=== PATIENT | female | born 1940 | race Two or more races ===

== ENCOUNTER 2022-01-01 11:48 | Inpatient (IN) | payer BC, MEDICAID, MEDICARE ==
[~2022-01-01] VITALS: Ht 152.4 cm; Wt 90.9 kg
[~2022-01-01 11:48] MED LIST: IBUP-1985 PO
[2022-01-01 12:42] LABS: BASOPHILS % (AUTO) 0.4 % (0-1); EOSINOPHILS # (AUTO) 0.1 X10'3 (0-0.9); HEMOGLOBIN 10.7 g/dl (12.0-16.0); LYMPHOCYTES # (AUTO) 1.1 X10'3 (1.1-4.8); LYMPHOCYTES % (AUTO) 14.1 % (21-51); MEAN CORPUSCULAR HEMOGLOBIN 25.9 PG (27.0-31.0); MEAN CORPUSCULAR HGB CONC 32.2 g/dL (33.0-36.5); MEAN CORPUSCULAR VOLUME 80.4 FL (78-98); MEAN PLATELET VOLUME 10.3 FL (7.4-10.4); MONOCYTES # (AUTO) 0.6 X10'3 (0-0.9); MONOCYTES % (AUTO) 7.8 % (2-12); NEUTROPHILS # (AUTO) 5.9 X10'3 (1.8-7.7); NEUTROPHILS % (AUTO) 76.7 % (42-75); PLATELET COUNT 118 X10'3 (140-440); RED BLOOD COUNT 4.11 X10'6 (4.20-5.60); RED CELL DISTRIBUTION WIDTH 17.9 % (11.5-14.5); WHITE BLOOD COUNT 7.7 X10'3 (4.5-11.0)
[2022-01-01 13:06] LABS: ALANINE AMINOTRANSFERASE 16 U/L (12-78); ALBUMIN 3.3 G/DL (3.4-5.0); ALBUMIN/GLOBULIN RATIO 0.7 (1.1-1.5); ALKALINE PHOSPHATASE 80 IU/L (46-116); ANION GAP 12 (8-16); ASPARTATE AMINO TRANSFERASE 25 U/L (10-37); BILIRUBIN,TOTAL 1.4 MG/DL (0.1-1.0); BLOOD UREA NITROGEN 17 MG/DL (7-18); BUN/CREATININE RATIO 23.6 (6.6-38.0); CALCIUM 8.4 MG/DL (8.5-10.1); CHLORIDE 110 MMOL/L (99-107); CREATININE 0.72 MG/DL (0.40-0.90); GLUCOSE 126 MG/DL (70-104); POTASSIUM 3.5 MMOL/L (3.5-5.1); SODIUM 147 MMOL/L (135-145); TOTAL CARBON DIOXIDE 25.5 MMOL/L (24-32); TOTAL PROTEIN 7.8 G/DL (6.4-8.2); eGFR 78 ML/MIN
--- NOTE | 2022-01-01 13:15 | NUR ---
Pt is awake and alert but confused to date and time. Daughter and son-inlaw at the bedside. Pt FIGUEROA, denies pain, talks to herself, and is forgetful.
--- NOTE | 2022-01-01 13:40 | NUR ---
Dr. Do canceled stroke alert.
[2022-01-01 13:43] LABS: APTT 28 SECONDS (22-32)
[2022-01-01] MEDS ORDERED: magnesium 2GM in 50ml NS 50 ML IV ONE (13:50)
[2022-01-01] MEDS ORDERED: ipratropium/albuterol 3ml nebule IH ONE (13:50)
[2022-01-01 14:18] LABS: CLARITY,URINE CLOUDY (Clear); COLOR,URINE YELLOW (Yellow); GLUCOSE, URINE NEGATIVE (Neg); KETONES,URINE 15 mg/dl (Neg); LEUKOCYTE ESTERASE ,URINE SMALL (Neg); NITRITES, URINE POSITIVE (Neg); OCCULT BLOOD,URINE TRACE-INTACT (Neg); PH,URINE 5.5 (4.8-8.0); PROTEIN,URINE TRACE mg/dl (Neg)
[2022-01-01 14:30] LABS: UA COLLECTION TYPE STRAIGHT CATH
[2022-01-01 14:32] LABS: BACTERIA,URINE 4+ /HPF (Neg); WBC,URINE 50-100 /HPF (0-4)
[2022-01-01 14:33] LABS: MUCUS STRANDS MODERATE /LPF (Neg); RBC,URINE 0-2 /HPF (0-2); SQUAMOUS EPITHELIAL CELL,UR MODERATE /LPF (FEW)
[2022-01-01] MEDS ORDERED: lactulose 20gm/30ml cup PO ONE (15:30)
[2022-01-01] MEDS ORDERED: rifaximin 550mg tablet PO ONE (15:30)
[2022-01-01] MEDS: CefTRIAXone 2gm/D5W 50ml BAG 50 ML IV ONE ×2 (16:11→17:04)
[2022-01-01] MEDS ORDERED: LEVO125T8 PO (17:46)
[2022-01-01] MEDS ORDERED: PERFLUTREN PROTEIN-A MICROSPHR (Optison) 0.22 MG/ML 3ML VIAL IV ONE (18:05)
[2022-01-01] MEDS ORDERED: potassium CL 10mEq/100ml bag 100 ML IV PRN (18:05)
[2022-01-01] MEDS ORDERED: magnesium 4gm in 100ml NS 100 ML IV PRN (18:05)
[2022-01-01] MEDS ORDERED: magnesium 2GM in 50ml NS 50 ML IV PRN (18:05)
[2022-01-01] MEDS ORDERED: acetaminophen 325mg tablet PO PRN ×2 (18:05)
[2022-01-01] MEDS ORDERED: POTASSIUM BICARB 20meq eff tab 20 MEQ TABLET.EFF PO PRN (18:05)
[2022-01-01] MEDS ORDERED: magnesium Cl slow-release 64mg tablet PO PRN (18:05)
[2022-01-01] MEDS ORDERED: mag hydrox/Alum hydrox/simeth 30ml oral suspension PO PRN (18:05)
[2022-01-01] MEDS ORDERED: HYDROcodone/acetaminophen 10/325mg tab PO PRN (18:05)
[2022-01-01] MEDS ORDERED: magnesium hydroxide 30ml (MOM) UD suspension PO PRN (18:05)
[2022-01-01] MEDS ORDERED: bisacodyl 10mg suppository rectal RC PRN (18:05)
[2022-01-01] MEDS ORDERED: morphine 2 MG/ML inj. syringe IV PRN ×2 (18:05)
[2022-01-01] MEDS ORDERED: HYDROcodone/acetaminophen 5mg/325mg tablet PO PRN (18:05)
[2022-01-01] MEDS ORDERED: diphenhydrAMINE 25mg capsule PO PRN (18:05)
[2022-01-01 19:07] LABS: HEMOGLOBIN A1C 6.3 % (4.5-6.2)
[2022-01-01] MEDS: K and/or MAG REPLACEMENT MC SCH (20:00)
[2022-01-01] MEDS: heparin, porcine 5000 units/ml vial SQ SCH (20:48)
[2022-01-01] MEDS: lactulose 20gm/30ml cup PO SCH (20:48)
[2022-01-01] MEDS: docusate sod 100mg capsule PO SCH (20:48)
[2022-01-02] MEDS: normal saline 1000ml 1,000 ML IV SCH ×3 (00:19→11:42)
[2022-01-02] MEDS: lactulose 20gm/30ml cup PO SCH ×6 (00:51→20:41)
[2022-01-02] MEDS: diatr meglu/diatrizoate 30ml oral sol.-(3 dose) bottle PO SCH ×3 (01:15→18:45)
[2022-01-02 06:21] LABS: BASOPHILS % (AUTO) 0.6 % (0-1); EOSINOPHILS # (AUTO) 0.2 X10'3 (0-0.9); EOSINOPHILS % (AUTO) 3.2 % (0-6); HEMATOCRIT 29.8 % (35.0-45.0); HEMOGLOBIN 9.6 g/dl (12.0-16.0); LYMPHOCYTES # (AUTO) 1.5 X10'3 (1.1-4.8); LYMPHOCYTES % (AUTO) 30.5 % (21-51); MEAN CORPUSCULAR HGB CONC 32.3 g/dL (33.0-36.5); MEAN CORPUSCULAR VOLUME 80.6 FL (78-98); MEAN PLATELET VOLUME 10.3 FL (7.4-10.4); MONOCYTES # (AUTO) 0.4 X10'3 (0-0.9); MONOCYTES % (AUTO) 8.7 % (2-12); NEUTROPHILS # (AUTO) 2.9 X10'3 (1.8-7.7); PLATELET COUNT 106 X10'3 (140-440); RED CELL DISTRIBUTION WIDTH 17.8 % (11.5-14.5); WHITE BLOOD COUNT 5.1 X10'3 (4.5-11.0)
[2022-01-02] MEDS: heparin, porcine 5000 units/ml vial SQ SCH (07:32)
[2022-01-02] MEDS: levoTHYROXINE 125mcg tablet PO SCH (07:32)
[2022-01-02] MEDS: CefTRIAXone/D5W-Rocephin 1gm 50 ML IV SCH (07:33)
[2022-01-02] MEDS: docusate sod 100mg capsule PO SCH ×2 (07:33→20:00)
[2022-01-02] MEDS: K and/or MAG REPLACEMENT MC SCH ×2 (07:33→20:00)
[2022-01-02] MEDS ORDERED: pantoprazole 40MG/NS 100ML BAG 100 ML IV SCH (08:30)
[2022-01-02] MEDS ORDERED: pantoprazole 40mg Tablet.DR PO SCH (08:45)
[2022-01-02] MEDS: rifaximin 550mg tablet PO SCH ×2 (09:21→20:41)
[2022-01-02] MEDS ORDERED: iohexol 350MG/ML 100ml bottle IV ONE (09:42)
[2022-01-02 10:05] LABS: ALANINE AMINOTRANSFERASE 14 U/L (12-78); ALBUMIN 2.9 G/DL (3.4-5.0); ALBUMIN/GLOBULIN RATIO 0.7 (1.1-1.5); ALKALINE PHOSPHATASE 72 IU/L (46-116); ANION GAP 14 (8-16); ASPARTATE AMINO TRANSFERASE 29 U/L (10-37); BILIRUBIN,TOTAL 0.9 MG/DL (0.1-1.0); BLOOD UREA NITROGEN 16 MG/DL (7-18); BUN/CREATININE RATIO 22.9 (6.6-38.0); CALCIUM 7.7 MG/DL (8.5-10.1); CHLORIDE 113 MMOL/L (99-107); CHOL/HDL RATIO 3.4 (0.00-4.99); CHOLESTEROL 134 MG/DL (0-200); GLUCOSE 129 MG/DL (70-104); HDL CHOLESTEROL 39 MG/DL (35-60); LDL CHOLESTEROL 85 MG/DL (50-100); MAGNESIUM 2.2 MG/DL (1.5-2.4); POTASSIUM 3.6 MMOL/L (3.5-5.1); SODIUM 150 MMOL/L (135-145); TOTAL CARBON DIOXIDE 23.2 MMOL/L (24-32); TRIGLYCERIDES 69 MG/DL (20-135); eGFR 80 ML/MIN
[2022-01-02 11:10] LABS: % IRON SATURATION 5 % (11-46); FERRITIN 11 NG/ML (8-252); IRON 23 UG/DL (49-151); TOTAL IRON BINDING CAPACITY 422 UG/DL (259-388)
[2022-01-02 11:12] LABS: HIV ANTIBODY 1&2 RAPID NON-REACTIVE (Neg)
[2022-01-02 13:55] VITALS: BP 136/53
--- NOTE | 2022-01-02 13:55 | NUR ---
received report from SANDRA Schneider in the ER. pt arrived to room 00853W in stable condition. pt oriented to room, hooked up to heart and vital monitor. pt currently has NS @75ml/hr and Protonix @ 20ml/hr. pt in SR/ SB Vital signs stable. pt alert and oriented, bu ttired. Addendum: 01/02/22 at 1617 by Alia Deng RN pt tired, but arrousable and able to answer questions. no deficits noted on neuro exam. Spoke to Adrianna bustillo Rn and no further stroke work up is necessary unless Dr. Ray gonzalez something. Addendum: 01/02/22 at 1623 by Alia Deng RN pts belongings dentures and clemens, and bra. no other belongings.
[2022-01-02] MEDS: pantoprazole 40MG/NS 100ML BAG 100 ML IV SCH ×2 (14:48→19:14)
--- NOTE | 2022-01-02 16:21 | NUR ---
paged Dr. Ray Rojo RN [phone] Short stay Eric Ward has Heparin SQ ordered and has had blood in stools, also on Rifaxamin. clarifying if you would like to continue these meds? thank you
--- NOTE | 2022-01-02 16:40 | NUR ---
pt transferred to [facility] room 3449P in stable condition. all belongings (one denture, clemens and bra) with pt. report given to SANDRA Gallego. pt oriented to room, call light in reach. Lashonda FLORES in to see pt.
[2022-01-02 18:00] VITALS: BP 147/70
--- NOTE | 2022-01-02 18:57 | NUR ---
Problems reprioritized. Patient report given, questions answered & plan of care reviewed with SANDRA Terry.
[2022-01-02] MEDS: dextrose 5%-water 1,000 ML IV SCH (20:43)
[2022-01-02 21:04] LABS: HEMATOCRIT 28.8 % (35.0-45.0); HEMOGLOBIN 9.1 g/dl (12.0-16.0); MEAN CORPUSCULAR HGB CONC 31.7 g/dL (33.0-36.5); MEAN CORPUSCULAR VOLUME 82.1 FL (78-98); MEAN PLATELET VOLUME 10.4 FL (7.4-10.4); PLATELET COUNT 102 X10'3 (140-440); RED BLOOD COUNT 3.51 X10'6 (4.20-5.60); RED CELL DISTRIBUTION WIDTH 18.4 % (11.5-14.5); WHITE BLOOD COUNT 4.1 X10'3 (4.5-11.0)
[2022-01-02 22:00] VITALS: BP 115/68
[2022-01-03] MEDS: dextrose 5%-water 1,000 ML IV SCH (00:10)
[2022-01-03] MEDS: lactulose 20gm/30ml cup PO SCH ×6 (00:19→19:54)
[2022-01-03] MEDS: pantoprazole 40MG/NS 100ML BAG 100 ML IV SCH ×6 (00:19→22:26)
[2022-01-03 02:00] VITALS: BP 127/64
--- NOTE | 2022-01-03 02:30 | NUR ---
omi labs, but blood hemolysed. tried to draw for hemogram, unable to get blood draw. 2 nurses both tried 3 times. Lab notified. Manager Environmental will come up to draw ADIEL
[2022-01-03 03:34] LABS: ALANINE AMINOTRANSFERASE 15 U/L (12-78); ALBUMIN/GLOBULIN RATIO 0.8 (1.1-1.5); ALKALINE PHOSPHATASE 72 IU/L (46-116); ANION GAP 13 (8-16); ASPARTATE AMINO TRANSFERASE 32 U/L (10-37); BILIRUBIN,TOTAL 0.9 MG/DL (0.1-1.0); BLOOD UREA NITROGEN 12 MG/DL (7-18); BUN/CREATININE RATIO 16.4 (6.6-38.0); CALCIUM 7.8 MG/DL (8.5-10.1); CHLORIDE 113 MMOL/L (99-107); CREATININE 0.73 MG/DL (0.40-0.90); GLUCOSE 165 MG/DL (70-104); MAGNESIUM 2.1 MG/DL (1.5-2.4); PHOSPHORUS 2.8 MG/DL (2.3-4.5); POTASSIUM 3.5 MMOL/L (3.5-5.1); SODIUM 148 MMOL/L (135-145); TOTAL CARBON DIOXIDE 22.1 MMOL/L (24-32); TOTAL PROTEIN 6.9 G/DL (6.4-8.2); eGFR 76 ML/MIN
--- NOTE | 2022-01-03 04:04 | NUR ---
Student documentation: I have reviewed and agree with all interventions, assessments performed and documented by SANDRA Crowe.
[2022-01-03 04:06] LABS: BASOPHILS % (AUTO) 0.5 % (0-1); EOSINOPHILS # (AUTO) 0.2 X10'3 (0-0.9); EOSINOPHILS % (AUTO) 4.1 % (0-6); HEMATOCRIT 28.9 % (35.0-45.0); HEMOGLOBIN 9.2 g/dl (12.0-16.0); LYMPHOCYTES # (AUTO) 1.8 X10'3 (1.1-4.8); LYMPHOCYTES % (AUTO) 32.3 % (21-51); MEAN CORPUSCULAR HEMOGLOBIN 25.9 PG (27.0-31.0); MEAN CORPUSCULAR HGB CONC 31.9 g/dL (33.0-36.5); MEAN CORPUSCULAR VOLUME 81.2 FL (78-98); MEAN PLATELET VOLUME 10.7 FL (7.4-10.4); MONOCYTES # (AUTO) 0.4 X10'3 (0-0.9); MONOCYTES % (AUTO) 7.7 % (2-12); NEUTROPHILS % (AUTO) 55.4 % (42-75); RED BLOOD COUNT 3.56 X10'6 (4.20-5.60); RED CELL DISTRIBUTION WIDTH 17.9 % (11.5-14.5); WHITE BLOOD COUNT 5.4 X10'3 (4.5-11.0)
[2022-01-03 05:20] LABS: PLATELET COUNT 106 X10'3 (140-440)
[2022-01-03 06:00] VITALS: BP 123/52
--- NOTE | 2022-01-03 06:38 | NUR ---
Problems reprioritized. Patient report given, questions answered & plan of care reviewed with SANDRA Perea.
[2022-01-03] MEDS: levoTHYROXINE 125mcg tablet PO SCH (07:51)
[2022-01-03] MEDS: rifaximin 550mg tablet PO SCH ×2 (07:51→19:54)
[2022-01-03] MEDS: CefTRIAXone/D5W-Rocephin 1gm 50 ML IV SCH (07:51)
[2022-01-03] MEDS: K and/or MAG REPLACEMENT MC SCH ×2 (08:00→19:49)
[2022-01-03] MEDS: docusate sod 100mg capsule PO SCH ×2 (08:00→20:00)
--- NOTE | 2022-01-03 09:44 | NUR ---
DM consult: Per EMR pt with T2DM, well controlled with A1c 6.36%. DM education not warranted at this time. Recommend advancing to regular diet as medically indicated given current A1c, lipid panel WNL, and geriatric age. Will continue to follow. Addendum: 01/03/22 at [address] Amended: Links added.
[2022-01-03 09:47] LABS: HEMOGLOBIN 8.8 g/dl (12.0-16.0); MEAN CORPUSCULAR HEMOGLOBIN 26.3 PG (27.0-31.0); MEAN CORPUSCULAR HGB CONC 31.5 g/dL (33.0-36.5); MEAN CORPUSCULAR VOLUME 83.4 FL (78-98); MEAN PLATELET VOLUME 10.4 FL (7.4-10.4); PLATELET COUNT 98 X10'3 (140-440); RED BLOOD COUNT 3.36 X10'6 (4.20-5.60); RED CELL DISTRIBUTION WIDTH 18.4 % (11.5-14.5); WHITE BLOOD COUNT 4.8 X10'3 (4.5-11.0)
[2022-01-03] MEDS: sodium ferric gluc complex inj 125 MG in normal saline 100ml IV soln 100 ML IV SCH (11:25)
[2022-01-03 13:00] VITALS: BP 119/52
[2022-01-03 15:38] LABS: HEMATOCRIT 27.5 % (35.0-45.0); HEMOGLOBIN 8.9 g/dl (12.0-16.0); MEAN CORPUSCULAR HEMOGLOBIN 26.6 PG (27.0-31.0); MEAN CORPUSCULAR HGB CONC 32.4 g/dL (33.0-36.5); MEAN CORPUSCULAR VOLUME 82.2 FL (78-98); MEAN PLATELET VOLUME 10.4 FL (7.4-10.4); PLATELET COUNT 105 X10'3 (140-440); RED BLOOD COUNT 3.35 X10'6 (4.20-5.60); RED CELL DISTRIBUTION WIDTH 18.3 % (11.5-14.5); WHITE BLOOD COUNT 5.8 X10'3 (4.5-11.0)
[2022-01-03 18:00] VITALS: BP 110/51
[2022-01-03 22:00] VITALS: BP_SYST 117; BP_SYST 99; BP_DIAS 45; BP_DIAS 60
[2022-01-04 00:05] LABS: OCCULT BLOOD STOOL POSITIVE (Neg)
[2022-01-04] MEDS: lactulose 20gm/30ml cup PO SCH ×3 (00:11→08:20)
--- NOTE | 2022-01-04 00:50 | NUR ---
Student documentation: I have reviewed and agree with all interventions, assessments performed and documented by IRASEMA Crowe.
[2022-01-04 02:00] VITALS: BP 114/88
[2022-01-04] MEDS: pantoprazole 40MG/NS 100ML BAG 100 ML IV SCH ×2 (03:37→08:20)
[2022-01-04 06:00] VITALS: BP 92/48
--- NOTE | 2022-01-04 06:17 | NUR ---
Problems reprioritized. Patient report given, questions answered & plan of care reviewed with SANDRA Espinal.
[2022-01-04 07:25] LABS: BASOPHILS % (AUTO) 0.6 % (0-1); EOSINOPHILS # (AUTO) 0.2 X10'3 (0-0.9); EOSINOPHILS % (AUTO) 4.1 % (0-6); HEMATOCRIT 26.2 % (35.0-45.0); HEMOGLOBIN 8.3 g/dl (12.0-16.0); LYMPHOCYTES # (AUTO) 1.2 X10'3 (1.1-4.8); LYMPHOCYTES % (AUTO) 26.1 % (21-51); MEAN CORPUSCULAR HEMOGLOBIN 25.9 PG (27.0-31.0); MEAN CORPUSCULAR HGB CONC 31.7 g/dL (33.0-36.5); MEAN CORPUSCULAR VOLUME 81.5 FL (78-98); MEAN PLATELET VOLUME 10.8 FL (7.4-10.4); MONOCYTES # (AUTO) 0.4 X10'3 (0-0.9); MONOCYTES % (AUTO) 8.4 % (2-12); NEUTROPHILS # (AUTO) 2.8 X10'3 (1.8-7.7); NEUTROPHILS % (AUTO) 60.8 % (42-75); PLATELET COUNT 106 X10'3 (140-440); RED BLOOD COUNT 3.22 X10'6 (4.20-5.60); RED CELL DISTRIBUTION WIDTH 17.8 % (11.5-14.5); WHITE BLOOD COUNT 4.7 X10'3 (4.5-11.0)
[2022-01-04 07:42] LABS: ALANINE AMINOTRANSFERASE 16 U/L (12-78); ALBUMIN 2.7 G/DL (3.4-5.0); ALBUMIN/GLOBULIN RATIO 0.8 (1.1-1.5); ALKALINE PHOSPHATASE 69 IU/L (46-116); ANION GAP 11 (8-16); ASPARTATE AMINO TRANSFERASE 35 U/L (10-37); BILIRUBIN,TOTAL 0.7 MG/DL (0.1-1.0); BLOOD UREA NITROGEN 8 MG/DL (7-18); BUN/CREATININE RATIO 9.2 (6.6-38.0); CALCIUM 7.7 MG/DL (8.5-10.1); CHLORIDE 113 MMOL/L (99-107); CREATININE 0.87 MG/DL (0.40-0.90); GLUCOSE 117 MG/DL (70-104); MAGNESIUM 1.7 MG/DL (1.5-2.4); PHOSPHORUS 3.4 MG/DL (2.3-4.5); SODIUM 145 MMOL/L (135-145); TOTAL PROTEIN 6.3 G/DL (6.4-8.2); eGFR 62 ML/MIN
[2022-01-04 07:45] LABS: POTASSIUM 2.9 MMOL/L (3.5-5.1)
[2022-01-04] MEDS: docusate sod 100mg capsule PO SCH (08:00)
[2022-01-04] MEDS: K and/or MAG REPLACEMENT MC SCH ×2 (08:00→19:36)
[2022-01-04] MEDS: POTASSIUM BICARB 20meq eff tab 20 MEQ TABLET.EFF PO PRN ×3 (08:19→18:00)
[2022-01-04] MEDS: rifaximin 550mg tablet PO SCH ×2 (08:20→19:49)
[2022-01-04] MEDS: levoTHYROXINE 125mcg tablet PO SCH (08:20)
[2022-01-04] MEDS: sodium ferric gluc complex inj 125 MG in normal saline 100ml IV soln 100 ML IV SCH (09:36)
[2022-01-04 11:00] VITALS: BP 124/58
[2022-01-04] MEDS: CefTRIAXone/D5W-Rocephin 1gm 50 ML IV SCH (12:50)
[2022-01-04] MEDS: Potassium Cl inj 20 MEQ in normal saline 1000ml 990 ML IV SCH (12:56)
[2022-01-04] MEDS: pantoprazole 40mg Tablet.DR PO SCH ×2 (13:01→19:49)
[2022-01-04 15:00] VITALS: BP 106/45
[2022-01-04 18:00] VITALS: BP 124/49
--- NOTE | 2022-01-04 18:27 | NUR ---
Problems reprioritized. Patient report given, questions answered & plan of care reviewed with SANDRA Terry.
[2022-01-04] MEDS ORDERED: magnesium Cl slow-release 64mg tablet PO PRN (18:45)
[2022-01-04] MEDS ORDERED: magnesium 4gm in 100ml NS 100 ML IV PRN (18:45)
[2022-01-04] MEDS ORDERED: potassium CL 10mEq/100ml bag 100 ML IV PRN (18:45)
[2022-01-04] MEDS ORDERED: POTASSIUM BICARB 20meq eff tab 20 MEQ TABLET.EFF PO PRN ×2 (18:45)
[2022-01-04] MEDS ORDERED: lactulose 20gm/30ml cup PO SCH (20:00)
[2022-01-04 22:29] VITALS: BP 106/46
[2022-01-05] VITALS (11 sets, daily range): BP systolic 89–128; BP diastolic 31–65
[2022-01-05] MEDS: Potassium Cl inj 20 MEQ in normal saline 1000ml 990 ML IV SCH ×3 (04:00→23:19)
--- NOTE | 2022-01-05 04:58 | NUR ---
Student documentation: I have reviewed and agree with all interventions, assessments performed and documented by IRASEMA Crowe.
--- NOTE | 2022-01-05 06:22 | NUR ---
Problems reprioritized. Patient report given, questions answered & plan of care reviewed with SANDRA Gallego.
[2022-01-05 06:26] LABS: BASOPHILS % (AUTO) 0.3 % (0-1); EOSINOPHILS # (AUTO) 0.2 X10'3 (0-0.9); EOSINOPHILS % (AUTO) 5.4 % (0-6); HEMOGLOBIN 7.1 g/dl (12.0-16.0); LYMPHOCYTES # (AUTO) 1.4 X10'3 (1.1-4.8); LYMPHOCYTES % (AUTO) 37.5 % (21-51); MEAN CORPUSCULAR HEMOGLOBIN 26.1 PG (27.0-31.0); MEAN CORPUSCULAR HGB CONC 32.2 g/dL (33.0-36.5); MEAN CORPUSCULAR VOLUME 81.2 FL (78-98); MEAN PLATELET VOLUME 10.7 FL (7.4-10.4); MONOCYTES # (AUTO) 0.4 X10'3 (0-0.9); MONOCYTES % (AUTO) 9.3 % (2-12); NEUTROPHILS # (AUTO) 1.8 X10'3 (1.8-7.7); NEUTROPHILS % (AUTO) 47.5 % (42-75); PLATELET COUNT 90 X10'3 (140-440); RED CELL DISTRIBUTION WIDTH 17.8 % (11.5-14.5); WHITE BLOOD COUNT 3.8 X10'3 (4.5-11.0)
[2022-01-05 06:45] LABS: HEMATOCRIT 21.9 % (35.0-45.0)
[2022-01-05 06:48] LABS: ALANINE AMINOTRANSFERASE 15 U/L (12-78); ALBUMIN 2.3 G/DL (3.4-5.0); ALBUMIN/GLOBULIN RATIO 0.7 (1.1-1.5); ALKALINE PHOSPHATASE 62 IU/L (46-116); ANION GAP 7 (8-16); ASPARTATE AMINO TRANSFERASE 33 U/L (10-37); BILIRUBIN,TOTAL 0.6 MG/DL (0.1-1.0); BLOOD UREA NITROGEN 6 MG/DL (7-18); CALCIUM 7.5 MG/DL (8.5-10.1); CHLORIDE 116 MMOL/L (99-107); CREATININE 0.67 MG/DL (0.40-0.90); GLUCOSE 95 MG/DL (70-104); MAGNESIUM 1.7 MG/DL (1.5-2.4); PHOSPHORUS 2.8 MG/DL (2.3-4.5); POTASSIUM 3.6 MMOL/L (3.5-5.1); SODIUM 145 MMOL/L (135-145); TOTAL CARBON DIOXIDE 22.5 MMOL/L (24-32); TOTAL PROTEIN 5.4 G/DL (6.4-8.2); eGFR 84 ML/MIN
[2022-01-05 07:35] LABS: ANISOCYTOSIS 1+; LARGE PLATELETS FEW; PLATELET ESTIMATE DECREASED
[2022-01-05 07:36] LABS: HBSAG SCREEN Negative; HEP A AB, IGM Negative
[2022-01-05 07:43] LABS: HEPATITIS C ANTIBODY 3.3 High
[2022-01-05] MEDS: K and/or MAG REPLACEMENT MC SCH ×2 (08:00→19:26)
[2022-01-05] MEDS: pantoprazole 40mg Tablet.DR PO SCH ×2 (08:24→19:42)
[2022-01-05] MEDS: rifaximin 550mg tablet PO SCH ×2 (08:24→19:42)
[2022-01-05] MEDS: levoTHYROXINE 125mcg tablet PO SCH (08:24)
[2022-01-05] MEDS: CefTRIAXone/D5W-Rocephin 1gm 50 ML IV SCH (08:24)
[2022-01-05] MEDS ORDERED: LIDOcaine Viscous 15ml cup ONE (11:29)
[2022-01-05] MEDS ORDERED: diphenhydrAMINE 50 mg/ml inj ONE (11:29)
[2022-01-05] MEDS ORDERED: fentaNYL/PF 50MCG/1 ML 2ML syringe ONE (11:29)
[2022-01-05] MEDS ORDERED: MIDAZolam 1 MG/ML 5ML VIAL ONE (11:29)
[2022-01-05] MEDS ORDERED: PEG 3350/Na sulf,bicarb,Cl/KCl oral sol 4 liter bottle PO ONE (13:15)
--- NOTE | 2022-01-05 18:29 | NUR ---
Problems reprioritized. Patient report given, questions answered & plan of care reviewed with SANDRA Terry.
[2022-01-06] VITALS (12 sets, daily range): BP systolic 102–126; BP diastolic 44–81
[2022-01-06 06:59] LABS: BASOPHILS % (AUTO) 0.5 % (0-1); EOSINOPHILS # (AUTO) 0.2 X10'3 (0-0.9); EOSINOPHILS % (AUTO) 5.4 % (0-6); LYMPHOCYTES # (AUTO) 1.1 X10'3 (1.1-4.8); LYMPHOCYTES % (AUTO) 35.3 % (21-51); MEAN CORPUSCULAR HEMOGLOBIN 25.9 PG (27.0-31.0); MEAN CORPUSCULAR HGB CONC 31.9 g/dL (33.0-36.5); MEAN CORPUSCULAR VOLUME 81.2 FL (78-98); MEAN PLATELET VOLUME 10.5 FL (7.4-10.4); MONOCYTES # (AUTO) 0.3 X10'3 (0-0.9); MONOCYTES % (AUTO) 9.4 % (2-12); NEUTROPHILS # (AUTO) 1.5 X10'3 (1.8-7.7); NEUTROPHILS % (AUTO) 49.4 % (42-75); PLATELET COUNT 83 X10'3 (140-440); RED CELL DISTRIBUTION WIDTH 17.6 % (11.5-14.5)
[2022-01-06 07:05] LABS: HEMATOCRIT 21.1 % (35.0-45.0); HEMOGLOBIN 6.7 g/dl (12.0-16.0)
--- NOTE | 2022-01-06 07:16 | NUR ---
PAGER ID: [phone] MESSAGE: PCU [id number] Sophy Ward; reporting critical Hgb 6.7, Hct 21.1. thanks minerva [phone]
[2022-01-06] MEDS: K and/or MAG REPLACEMENT MC SCH ×2 (08:00→20:54)
[2022-01-06] MEDS: rifaximin 550mg tablet PO SCH ×2 (08:14→20:43)
[2022-01-06] MEDS: levoTHYROXINE 125mcg tablet PO SCH (08:14)
[2022-01-06 08:15] LABS: ALANINE AMINOTRANSFERASE 16 U/L (12-78); ALBUMIN 2.4 G/DL (3.4-5.0); ALBUMIN/GLOBULIN RATIO 0.7 (1.1-1.5); ALKALINE PHOSPHATASE 66 IU/L (46-116); ANION GAP 13 (8-16); ASPARTATE AMINO TRANSFERASE 37 U/L (10-37); BILIRUBIN,TOTAL 0.7 MG/DL (0.1-1.0); BLOOD UREA NITROGEN 4 MG/DL (7-18); BUN/CREATININE RATIO 6.3 (6.6-38.0); CALCIUM 7.3 MG/DL (8.5-10.1); CHLORIDE 114 MMOL/L (99-107); CREATININE 0.63 MG/DL (0.40-0.90); GLUCOSE 96 MG/DL (70-104); MAGNESIUM 1.7 MG/DL (1.5-2.4); PHOSPHORUS 2.8 MG/DL (2.3-4.5); POTASSIUM 3.6 MMOL/L (3.5-5.1); SODIUM 147 MMOL/L (135-145); TOTAL CARBON DIOXIDE 20.1 MMOL/L (24-32); TOTAL PROTEIN 5.7 G/DL (6.4-8.2); eGFR 90 ML/MIN
[2022-01-06] MEDS: CefTRIAXone/D5W-Rocephin 1gm 50 ML IV SCH (08:15)
[2022-01-06] MEDS: pantoprazole 40mg Tablet.DR PO SCH ×2 (08:15→20:43)
--- NOTE | 2022-01-06 09:30 | NUR ---
Initial: Pt admitted w/ metabolic encephalopathy and anemia per EMR. Pt underwent EGD r/t blood stools, pending report on that. Pt has been on Clear liquid diet since admit, avg intake 75% of meals not meeting needs. Recommend Advancing to Regular diet as appropriate. LBM 01/05. Pt may be at high risk for developing malnutrition if diet cannot be advanced. Will continue to monitor. Recommendations: 1. Advance to Regular diet as medically indicated given current A1c, lipid panel WNL, and geriatric age 2. Monitor need for ONS once diet advanced 3. Bowel care per rx 4. Scaled wts Addendum: 01/06/22 at [address] Amended: Links added.
[2022-01-06] MEDS ORDERED: MIDAZolam 1 MG/ML 5ML VIAL ONE (12:36)
[2022-01-06] MEDS ORDERED: fentaNYL/PF 50MCG/1 ML 2ML syringe ONE (12:36)
[2022-01-06] MEDS ORDERED: diphenhydrAMINE 50 mg/ml inj ONE (12:36)
--- NOTE | 2022-01-06 12:40 | NUR ---
Pt taken to GI lab. Blood still infusing, GI salesperson shoes aware.
--- NOTE | 2022-01-06 14:30 | NUR ---
ASSISTING WITH PT CARE, PT BROUGHT BACK FROM GI LAB, REPORT FROM CLARA FLORES, PT IS SCHEDULED FOR SURGERY 01/[address] SHORT, REPORT GIVEN TO KELSEY GAITAN, PT IS RECEIVING PRBC, TOLERATING WELL, SKIN P/W/D, FAMILY AT BEDSIDE
--- NOTE | 2022-01-06 14:56 | NUR ---
REPORT GIVEN TO EDER FLORES
--- NOTE | 2022-01-06 18:33 | NUR ---
Problems reprioritized. Patient report given, questions answered & plan of care reviewed with SANDRA Craft.
[2022-01-06 19:28] LABS: HEMOGLOBIN 7.3 g/dl (12.0-16.0); MEAN CORPUSCULAR HEMOGLOBIN 25.6 PG (27.0-31.0); MEAN CORPUSCULAR HGB CONC 31.5 g/dL (33.0-36.5); MEAN CORPUSCULAR VOLUME 81.4 FL (78-98); MEAN PLATELET VOLUME 10.1 FL (7.4-10.4); PLATELET COUNT 85 X10'3 (140-440); RED BLOOD COUNT 2.83 X10'6 (4.20-5.60); RED CELL DISTRIBUTION WIDTH 17.5 % (11.5-14.5); WHITE BLOOD COUNT 2.8 X10'3 (4.5-11.0)
[2022-01-06] MEDS: potassium Cl 20mEq in NS 1,000 ML IV SCH (21:54)
[2022-01-07] VITALS (16 sets, daily range): BP systolic 89–139; BP diastolic 37–80
--- NOTE | 2022-01-07 06:10 | NUR ---
Patient in room PCU 3025. I have received report from Venancio FLORES and had the opportunity to ask questions and assume patient care.
[2022-01-07] MEDS: pantoprazole 40mg Tablet.DR PO SCH ×2 (08:00→19:40)
[2022-01-07] MEDS: levoTHYROXINE 125mcg tablet PO SCH (08:00)
[2022-01-07] MEDS: K and/or MAG REPLACEMENT MC SCH ×2 (08:00→19:40)
[2022-01-07] MEDS: rifaximin 550mg tablet PO SCH ×2 (08:02→20:55)
[2022-01-07] MEDS: potassium Cl 20mEq in NS 1,000 ML IV SCH ×2 (10:58→20:55)
[2022-01-07] MEDS ORDERED: BUPIVAcaine/PF 2.5 mg/ml (0.25%) 30ml vial ONE (12:37)
[2022-01-07] MEDS ORDERED: meperidine/PF 25mg/ml syringe IV PRN ×3 (12:55)
[2022-01-07] MEDS ORDERED: morphine 4 MG/ML inj SYRINge IV PRN (12:55)
[2022-01-07] MEDS ORDERED: ringers solution, lacted 1,000 ML IV SCH (12:55)
[2022-01-07] MEDS ORDERED: proCHLORperazine 10 MG/2 ml inj IV PRN (12:55)
[2022-01-07] MEDS ORDERED: morphine 2 MG/ML inj. syringe IV PRN (12:55)
[2022-01-07] MEDS ORDERED: ondansetron/PF 4mg/2ml inj IV PRN (12:55)
[2022-01-07] MEDS ORDERED: fentaNYL /PF 50mcg/ml 5ml ampule ONE (13:22)
[2022-01-07] MEDS ORDERED: rocuronium 10mg/ml inj IV ONE (13:22)
[2022-01-07] MEDS ORDERED: propofol inj 20 ML IV ONE (13:22)
[2022-01-07] MEDS ORDERED: ondansetron/PF 4mg/2ml inj ONE (13:43)
[2022-01-07] MEDS ORDERED: ePHEDrine 50MG/ML INJ. ONE (13:43)
[2022-01-07] MEDS ORDERED: sevoflurane 250ml liquid IH ONE (13:43)
[2022-01-07] MEDS ORDERED: ceFOXitin 1000 MG inj ONE ×2 (14:01)
[2022-01-07] MEDS ORDERED: dexamethasone sod phosphate 4mg/ml inj. ONE (14:17)
[2022-01-07] MEDS ORDERED: albumin (Human) 5% 250ml 250 ML IV ONE ×2 (14:22→21:10)
[2022-01-07] MEDS ORDERED: glycopyrrolate 0.2mg/ml inj ONE (15:47)
[2022-01-07] MEDS ORDERED: neostigmine methylsulfate 1 MG/ML 10ml vial ONE (15:47)
--- NOTE | 2022-01-07 16:10 | NUR ---
Received from OR via , accompanied by Anesthesiologist and report given by Anesthesiolgist. PATIENT WAKING UP, DENIES PAIN, V/S STABLE, SCD ON, CSM INTACT, ISTAT BEING DRAWN, MIDLINE ABDOMEN ISLAND DRESSING W/ UNDERNEATH WEI AND GAUZE CDI, 20G MIDLINE IV RUE, F/C DRAINING CLEAR YELLOW URINE.
[2022-01-07 16:33] LABS: ISTAT ANION GAP 13 (8-12); ISTAT BUN < 3 mg/dL (7-18); ISTAT CL 108 mmol/L (99-107); ISTAT CREATININE 0.5 mg/dL (0.6-1.1); ISTAT GLUCOSE 149 mg/dL (70-104); ISTAT HGB 7.8 g/dl (12.0-16.0); ISTAT Hct 23 %PCV (35-45); ISTAT IONIZED CALCIUM 1.09 mmol/L (1.03-1.32); ISTAT K 3.4 mmol/L (3.5-5.1); ISTAT NA 144 mmol/L (135-145); ISTAT TOTAL CO2 23 mmol/L (24-32); ISTAT eGFR > 90 ML/MIN
--- NOTE | 2022-01-07 16:35 | NUR ---
[facility] NOTIF[facility], NO NEW ORDERS FOR NOW
--- NOTE | 2022-01-07 17:00 | NUR ---
PATIENT SLEEPY BUT ORIENTED X3, MEDS GIVEN FOR C/O PAIN SEE EMAR, V/S STABLE, SCD ON, CSM INTACT, MIDLINE ABDOMEN ISLAND DRESSING W/ UNDERNEATH WEI AND GAUZE CDI, 18G MIDLINE IV RUE, F/C DRAINING CLEAR YELLOW URINE. PATIENT TAKEN TO 2010 WITH ALL BELONGINGS AND HOOKED UP TO MONITORS IN ROOM AND REPORT GIVEN TO RN WHO HAS TAKEN OVER PATIENT CARE.
[2022-01-07] MEDS: morphine 2 MG/ML inj. syringe IV PRN (17:37)
--- NOTE | 2022-01-07 17:45 | NUR ---
Patient in room CICU 2010. I have received report from Vladimir FLORES from PACU and had the opportunity to ask questions and assume patient care. Family was invited to come see pt. She was appropriate with each of them. She did complian about pain. MS was given and her BP dropped with just 1 mg but pt still able to follow directions. Pt turned to her L. Indicated it did help her feel better but still groaning.
--- NOTE | 2022-01-07 18:23 | NUR ---
Problems reprioritized. Patient report given, questions answered & plan of care reviewed with Mallory FLORES.
[2022-01-07] MEDS ORDERED: magnesium 4gm in 100ml NS 100 ML IV PRN (19:20)
[2022-01-07] MEDS ORDERED: POTASSIUM BICARB 20meq eff tab 20 MEQ TABLET.EFF PO PRN ×2 (19:20)
[2022-01-07] MEDS ORDERED: magnesium 2GM in 50ml NS 50 ML IV PRN (19:20)
[2022-01-07] MEDS ORDERED: potassium Cl 20mEq/100mL bag 100 ML IV PRN (19:20)
[2022-01-07] MEDS ORDERED: magnesium Cl slow-release 64mg tablet PO PRN (19:20)
[2022-01-07] MEDS: potassium CL 10mEq/100ml bag 100 ML IV PRN ×4 (19:40→22:57)
--- NOTE | 2022-01-07 21:09 | NUR ---
DR. MENSAH NOTIFIED OF DECREASED URINE OUTPUT. ORDERED 500CC OF 5% ALBUMIN IV X1.
[2022-01-07] MEDS ORDERED: ALBUMIN HUMAN 5% 500ML 500 ML IV ONE (21:10)
[2022-01-08] VITALS (30 sets, daily range): BP systolic 90–111; BP diastolic 42–74
--- NOTE | 2022-01-08 04:00 | NUR ---
DR. MENSAH NOTIFIED OF DECREASED URINE OUTPUT. 500 CC 5% ALBUMIN ORDERED.
[2022-01-08] MEDS ORDERED: albumin (Human) 5% 250ml 250 ML IV ONE (04:05)
[2022-01-08] MEDS ORDERED: ALBUMIN HUMAN 5% 500ML 500 ML IV ONE (04:05)
[2022-01-08] MEDS: HYDROcodone/acetaminophen 10/325mg tab PO PRN ×3 (06:34→17:23)
[2022-01-08 07:33] LABS: ALANINE AMINOTRANSFERASE 22 U/L (12-78); ALBUMIN/GLOBULIN RATIO 1.4 (1.1-1.5); ALKALINE PHOSPHATASE 42 IU/L (46-116); ANION GAP 10 (8-16); ASPARTATE AMINO TRANSFERASE 55 U/L (10-37); BILIRUBIN,TOTAL 2.1 MG/DL (0.1-1.0); BLOOD UREA NITROGEN 5 MG/DL (7-18); BUN/CREATININE RATIO 6.7 (6.6-38.0); CALCIUM 7.2 MG/DL (8.5-10.1); CHLORIDE 112 MMOL/L (99-107); CREATININE 0.75 MG/DL (0.40-0.90); GLUCOSE 160 MG/DL (70-104); MAGNESIUM 1.6 MG/DL (1.5-2.4); POTASSIUM 4.7 MMOL/L (3.5-5.1); SODIUM 143 MMOL/L (135-145); TOTAL CARBON DIOXIDE 21.4 MMOL/L (24-32); TOTAL PROTEIN 5.2 G/DL (6.4-8.2); eGFR 74 ML/MIN
[2022-01-08] MEDS: morphine 2 MG/ML inj. syringe IV PRN ×3 (07:42→22:56)
[2022-01-08 07:44] LABS: BASOPHILS % (AUTO) 0 % (0-1); EOSINOPHILS % (AUTO) 0 % (0-6); LYMPHOCYTES # (AUTO) 0.4 X10'3 (1.1-4.8); LYMPHOCYTES % (AUTO) 4.5 % (21-51); MEAN CORPUSCULAR HEMOGLOBIN 27.6 PG (27.0-31.0); MEAN CORPUSCULAR HGB CONC 32.5 g/dL (33.0-36.5); MEAN CORPUSCULAR VOLUME 84.9 FL (78-98); MEAN PLATELET VOLUME 10.3 FL (7.4-10.4); MONOCYTES # (AUTO) 0.5 X10'3 (0-0.9); MONOCYTES % (AUTO) 6.2 % (2-12); NEUTROPHILS # (AUTO) 7.7 X10'3 (1.8-7.7); NEUTROPHILS % (AUTO) 89.3 % (42-75); PLATELET COUNT 68 X10'3 (140-440); RED BLOOD COUNT 2.49 X10'6 (4.20-5.60); RED CELL DISTRIBUTION WIDTH 18.3 % (11.5-14.5); WHITE BLOOD COUNT 8.6 X10'3 (4.5-11.0)
[2022-01-08 07:51] LABS: HEMATOCRIT 21.2 % (35.0-45.0); HEMOGLOBIN 6.9 g/dl (12.0-16.0)
[2022-01-08] MEDS: K and/or MAG REPLACEMENT MC SCH ×2 (08:00→20:00)
[2022-01-08] MEDS: pantoprazole 40mg Tablet.DR PO SCH ×2 (08:59→20:49)
[2022-01-08] MEDS: levoTHYROXINE 125mcg tablet PO SCH (08:59)
[2022-01-08] MEDS: rifaximin 550mg tablet PO SCH ×2 (08:59→20:49)
[2022-01-08] MEDS ORDERED: furosemide 20 MG/2 ML vial IV ONE (10:15)
--- NOTE | 2022-01-08 11:23 | NUR ---
F/u 01/08: Pt DX UTI, GIB, dehydration, and now s/p open ascending colon resection for colon mass per EMR. Pt now day 7 mostly 100% clear liquids vs occasional NPO not meeting nutrition needs. RYAN d/w at rounds alternative nutrition strategies given prolonged restrictive diet s/p OR. Per RN; surgeon requests another day prior to diet advancement or alternative nutrition strategies given recent OR. Given 7 days restrictive diet and mild weakness pt meets minimum non-severe malnutrition criteria; MD notified. LBM 01/06 w/ PRN MoM and dulcolax available pending GI function return post-op. IF pt remains on clear liquids consider supplemental PPN to assist meeting nutrition needs. Will continue to monitor. Recommendations: 1. Advance to Low-residue diet as medically indicated given recent GI surgery, current A1c, lipid panel WNL, and geriatric age 2. monitor for ONS needs once diet advances 3. IF remains on restrictive clear liquids diet would benefit from supplemental PPN to assist meeting nutrition needs; now w/ malnutrition 4. MVI for wound healing needs 5. Bowel care per rx 6. scaled wt this admit; subsequent weekly scaled wts Addendum: 01/08/22 at [address] Amended: Links added.
[2022-01-08] MEDS ORDERED: furosemide 40mg/4ml inj IV ONE (14:35)
[2022-01-08] MEDS: ipratropium/albuterol 3ml nebule NEB PRN (14:53)
[2022-01-08] MEDS: potassium Cl 20mEq in NS 1,000 ML IV SCH (17:20)
--- NOTE | 2022-01-08 22:50 | NUR ---
Called to patient's bedside. pt had removed her abdominal dressing and most of the packing in the lower portion of the wound. Sts it was wet and she was trying to remove the wetness. Dsg removed at this time. attempted to re-pack with iodoform gauze, but was unable to place the amount that was removed. DSD applied. pt education provided on the importance of not removing dsg and touching wound as this can introduce infection. verbalizes understanding and states she will put on the call light if it gets wet again.
[2022-01-09] VITALS (24 sets, daily range): BP systolic 92–127; BP diastolic 39–80
[2022-01-09] MEDS: potassium Cl 20mEq in NS 1,000 ML IV SCH ×2 (05:14→21:00)
[2022-01-09] MEDS: morphine 2 MG/ML inj. syringe IV PRN ×2 (05:16→20:56)
[2022-01-09] MEDS: ondansetron/PF 4mg/2ml inj IV PRN (05:39)
[2022-01-09 06:24] LABS: BASOPHILS % (AUTO) 0.1 % (0-1); EOSINOPHILS # (AUTO) 0.1 X10'3 (0-0.9); EOSINOPHILS % (AUTO) 1.2 % (0-6); HEMATOCRIT 28.5 % (35.0-45.0); HEMOGLOBIN 9.6 g/dl (12.0-16.0); LYMPHOCYTES # (AUTO) 0.6 X10'3 (1.1-4.8); LYMPHOCYTES % (AUTO) 8.3 % (21-51); MEAN CORPUSCULAR HEMOGLOBIN 28.2 PG (27.0-31.0); MEAN CORPUSCULAR HGB CONC 33.6 g/dL (33.0-36.5); MEAN CORPUSCULAR VOLUME 83.8 FL (78-98); MEAN PLATELET VOLUME 10.6 FL (7.4-10.4); MONOCYTES # (AUTO) 0.6 X10'3 (0-0.9); MONOCYTES % (AUTO) 8.6 % (2-12); NEUTROPHILS % (AUTO) 81.8 % (42-75); PLATELET COUNT 66 X10'3 (140-440); RED BLOOD COUNT 3.41 X10'6 (4.20-5.60); RED CELL DISTRIBUTION WIDTH 17.4 % (11.5-14.5); WHITE BLOOD COUNT 7.3 X10'3 (4.5-11.0)
[2022-01-09] MEDS: HYDROcodone/acetaminophen 10/325mg tab PO PRN ×2 (07:24→14:41)
[2022-01-09 07:32] LABS: ALANINE AMINOTRANSFERASE 30 U/L (12-78); ALBUMIN 2.9 G/DL (3.4-5.0); ALBUMIN/GLOBULIN RATIO 1.1 (1.1-1.5); ALKALINE PHOSPHATASE 46 IU/L (46-116); ANION GAP 5 (8-16); ASPARTATE AMINO TRANSFERASE 55 U/L (10-37); BILIRUBIN,TOTAL 2.3 MG/DL (0.1-1.0); BLOOD UREA NITROGEN 10 MG/DL (7-18); BUN/CREATININE RATIO 13.3 (6.6-38.0); CALCIUM 7.4 MG/DL (8.5-10.1); CHLORIDE 110 MMOL/L (99-107); CREATININE 0.75 MG/DL (0.40-0.90); GLUCOSE 116 MG/DL (70-104); MAGNESIUM 1.6 MG/DL (1.5-2.4); POTASSIUM 4.5 MMOL/L (3.5-5.1); SODIUM 142 MMOL/L (135-145); TOTAL CARBON DIOXIDE 26.8 MMOL/L (24-32); TOTAL PROTEIN 5.5 G/DL (6.4-8.2); eGFR 74 ML/MIN
[2022-01-09 07:45] LABS: ANISOCYTOSIS 1+; BURR CELLS FEW; PLATELET ESTIMATE DECREASED; SCHISTOCYTES FEW
[2022-01-09 07:47] LABS: ELLIPTOCYTES FEW
[2022-01-09 07:48] LABS: LARGE PLATELETS FEW; POLYCHROMASIA FEW
[2022-01-09] MEDS: K and/or MAG REPLACEMENT MC SCH ×2 (08:00→20:00)
[2022-01-09] MEDS: levoTHYROXINE 125mcg tablet PO SCH (09:05)
[2022-01-09] MEDS: pantoprazole 40mg Tablet.DR PO SCH ×2 (09:05→20:05)
[2022-01-09] MEDS: rifaximin 550mg tablet PO SCH ×2 (09:05→20:05)
--- NOTE | 2022-01-09 10:51 | NUR ---
F/u 01/09: Pt now day 8 clear liquids PO declined to 25-50% initial clears last night from previous ~100% prior to OR w/ only taking few sips this AM per RN. RD recommended PPN to robotics specialist at rounds. Digital Learning Platforms Manager TC to surgeon who declines supplemental nutrition support at this time. RD recommends Ensure Clear TIDWM since diet not to advance and nutrition support declined; MD notified. Recommendations: 1. Advance to Low-residue diet as medically indicated given recent GI surgery, current A1c, lipid panel WNL, and geriatric age 2. Ensure Clear TIDWM; pending physician verification in EMR 3. IF remains on restrictive clear liquids diet would benefit from supplemental PPN to assist meeting nutrition needs; now w/ malnutrition 4. MVI for wound healing needs 5. Bowel care per rx 6. scaled wt this admit; subsequent weekly scaled wts Addendum: 01/09/22 at [address] Amended: Links added.
[2022-01-09] MEDS ORDERED: furosemide 40mg/4ml inj IV ONE (15:37)
[2022-01-09] MEDS: ipratropium/albuterol 3ml nebule NEB PRN (15:51)
--- NOTE | 2022-01-09 16:32 | NUR ---
PRESSURE ULCER EDUCATION: DEFINITION: A pressure ulcer is an area of skin that breaks down when you stay in one position too long. The constant pressure against the skin reduces the blood flow to that area and the affected tissue dies. CAUSES: "Being bedridden or in a wheelchair "Fragile skin "Having a chronic condition, such as diabetes or vascular disease "Inability to move certain parts of your body without assistance "Older age "Incontinence of urine or stool SYMPTOMS: "A reddened area that DOES NOT turn white when pressed on - this can be the beginning of a pressure ulcer "A blister, deep sore or a crater - these can be advanced pressure ulcers FIRST AID: "Relieve the pressure on this area "Keep the area clean and dry "Call your primary doctor if you see any of the above symptoms "DO NOT massage the area "DO NOT use a donut shaped or ring shaped pillow- these actually interfere with the blood flow and cause complications PREVENTION: "Check for pressure ulcers everyday "Change position at least every two hours to relieve pressure "Use items that help relieve pressure- pillows, sheepskin, foam padding, and powders. "Keep skin clean and dry "Eat healthy well balanced meals "Exercise daily IF YOU SEE ANY OF THESE SYMPTOMS WHILE IN THE HOSPITAL - TELL YOUR NURSE IMMEDIATELY. IF YOU SEE ANY OF THESE SYMPTOMS WHILE AT HOME OR HAVE ANY QUESTIONS OR CONCERNS ABOUT PRESSURE ULCERS - CALL YOUR PRIMARY DOCTOR IMMEDIATELY. Addendum: 01/09/22 at 1632 by Faith Hunt LVN Amended: Links added.
[2022-01-09 18:24] LABS: ALANINE AMINOTRANSFERASE 32 U/L (12-78); ALBUMIN 2.8 G/DL (3.4-5.0); ALKALINE PHOSPHATASE 47 IU/L (46-116); ANION GAP 6 (8-16); ASPARTATE AMINO TRANSFERASE 45 U/L (10-37); BILIRUBIN,TOTAL 1.7 MG/DL (0.1-1.0); BLOOD UREA NITROGEN 10 MG/DL (7-18); BUN/CREATININE RATIO 13.3 (6.6-38.0); CALCIUM 7.4 MG/DL (8.5-10.1); CHLORIDE 110 MMOL/L (99-107); CREATININE 0.75 MG/DL (0.40-0.90); GLUCOSE 129 MG/DL (70-104); SODIUM 144 MMOL/L (135-145); TOTAL CARBON DIOXIDE 27.6 MMOL/L (24-32); TOTAL PROTEIN 5.6 G/DL (6.4-8.2); eGFR 74 ML/MIN
[2022-01-10] VITALS (20 sets, daily range): BP systolic 91–138; BP diastolic 42–97
[2022-01-10] MEDS: morphine 2 MG/ML inj. syringe IV PRN ×2 (03:11→09:07)
[2022-01-10 06:44] LABS: BASOPHILS % (AUTO) 0.2 % (0-1); EOSINOPHILS # (AUTO) 0.2 X10'3 (0-0.9); EOSINOPHILS % (AUTO) 3.3 % (0-6); HEMATOCRIT 28.2 % (35.0-45.0); HEMOGLOBIN 9.4 g/dl (12.0-16.0); LYMPHOCYTES # (AUTO) 0.5 X10'3 (1.1-4.8); LYMPHOCYTES % (AUTO) 9.9 % (21-51); MEAN CORPUSCULAR HEMOGLOBIN 28.3 PG (27.0-31.0); MEAN CORPUSCULAR HGB CONC 33.2 g/dL (33.0-36.5); MEAN CORPUSCULAR VOLUME 85.4 FL (78-98); MEAN PLATELET VOLUME 10.6 FL (7.4-10.4); MONOCYTES # (AUTO) 0.5 X10'3 (0-0.9); MONOCYTES % (AUTO) 10.4 % (2-12); NEUTROPHILS # (AUTO) 3.8 X10'3 (1.8-7.7); NEUTROPHILS % (AUTO) 76.2 % (42-75); PLATELET COUNT 60 X10'3 (140-440); RED CELL DISTRIBUTION WIDTH 18.6 % (11.5-14.5)
[2022-01-10 07:10] LABS: ALANINE AMINOTRANSFERASE 26 U/L (12-78); ALBUMIN 2.5 G/DL (3.4-5.0); ALBUMIN/GLOBULIN RATIO 0.9 (1.1-1.5); ALKALINE PHOSPHATASE 45 IU/L (46-116); ANION GAP 7 (8-16); ASPARTATE AMINO TRANSFERASE 39 U/L (10-37); BILIRUBIN,TOTAL 1.5 MG/DL (0.1-1.0); BLOOD UREA NITROGEN 9 MG/DL (7-18); BUN/CREATININE RATIO 12.9 (6.6-38.0); CALCIUM 7.4 MG/DL (8.5-10.1); CHLORIDE 111 MMOL/L (99-107); GLUCOSE 116 MG/DL (70-104); MAGNESIUM 1.6 MG/DL (1.5-2.4); POTASSIUM 4.4 MMOL/L (3.5-5.1); SODIUM 145 MMOL/L (135-145); TOTAL CARBON DIOXIDE 26.9 MMOL/L (24-32); TOTAL PROTEIN 5.2 G/DL (6.4-8.2); eGFR 80 ML/MIN
[2022-01-10] MEDS: ipratropium/albuterol 3ml nebule NEB PRN (07:28)
[2022-01-10] MEDS: rifaximin 550mg tablet PO SCH ×2 (07:41→20:37)
[2022-01-10] MEDS: levoTHYROXINE 125mcg tablet PO SCH (07:41)
[2022-01-10] MEDS: pantoprazole 40mg Tablet.DR PO SCH ×2 (07:41→20:37)
[2022-01-10] MEDS: HYDROcodone/acetaminophen 10/325mg tab PO PRN ×2 (07:42→17:12)
[2022-01-10] MEDS: K and/or MAG REPLACEMENT MC SCH ×2 (08:00→20:00)
[2022-01-10] MEDS ORDERED: albumin (human) 25% 100 ML IV solution IV ONE (08:50)
[2022-01-10] MEDS: potassium Cl 20mEq in NS 1,000 ML IV SCH (10:00)
--- NOTE | 2022-01-10 17:55 | NUR ---
Received patient to room 359A via bed accompanied by x1 staff. Patient alert with no complaints. Patient belonging bag at bedside. Patient with wound vac to midline abd dressing cdi, patent and suctioning with no issues. Patient zuñiga catheter drainage bag leaking. Zuñiga catheter drainage bag changed. Patient oriented to room and call light. Medications placed in patient specific bin. Call light placed within patient's reach. Bed low and locked. VSS.
--- NOTE | 2022-01-10 18:31 | NUR ---
Problems reprioritized. Patient report given, questions answered & plan of care reviewed with CRISTIAN FOSTER RN.
--- NOTE | 2022-01-10 18:40 | NUR ---
Patient in room ISIAH 359. I have received report from ROSMERY FLORES AND KRISH FLORES and had the opportunity to ask questions and assume patient care.
[2022-01-10] MEDS: furosemide 40mg/4ml inj IV SCH (20:37)
[2022-01-11] MEDS: potassium Cl 20mEq in NS 1,000 ML IV SCH (01:20)
[2022-01-11] MEDS: HYDROcodone/acetaminophen 10/325mg tab PO PRN (01:50)
[2022-01-11 04:05] LABS: ALANINE AMINOTRANSFERASE 21 U/L (12-78); ALBUMIN 2.5 G/DL (3.4-5.0); ALKALINE PHOSPHATASE 44 IU/L (46-116); ANION GAP 4 (8-16); ASPARTATE AMINO TRANSFERASE 25 U/L (10-37); BILIRUBIN,TOTAL 1.6 MG/DL (0.1-1.0); BLOOD UREA NITROGEN 7 MG/DL (7-18); BUN/CREATININE RATIO 10.8 (6.6-38.0); CALCIUM 7.6 MG/DL (8.5-10.1); CHLORIDE 109 MMOL/L (99-107); CREATININE 0.65 MG/DL (0.40-0.90); GLUCOSE 117 MG/DL (70-104); MAGNESIUM 1.6 MG/DL (1.5-2.4); POTASSIUM 3.8 MMOL/L (3.5-5.1); SODIUM 143 MMOL/L (135-145); TOTAL CARBON DIOXIDE 30.2 MMOL/L (24-32); TOTAL PROTEIN 5.1 G/DL (6.4-8.2); eGFR 87 ML/MIN
[2022-01-11 07:16] VITALS: BP 103/57
[2022-01-11] MEDS: K and/or MAG REPLACEMENT MC SCH ×2 (08:18→20:00)
[2022-01-11] MEDS: levoTHYROXINE 125mcg tablet PO SCH (08:42)
[2022-01-11] MEDS: furosemide 40mg/4ml inj IV SCH ×2 (08:42→20:25)
[2022-01-11] MEDS: rifaximin 550mg tablet PO SCH ×2 (08:42→20:25)
[2022-01-11] MEDS: pantoprazole 40mg Tablet.DR PO SCH ×2 (08:42→20:25)
--- NOTE | 2022-01-11 09:22 | NUR ---
F/u 01/11: Pt continues on Clear liquid diet, Ensure Clear remains unverified in EMR. Pt is in desperate need of nutrition support to bolster her nutrition status given prolonged insufficient diet order. RD has been recommending PPN over the course of pt stay though nutrition support has been declined by surgeon. Pt continues to be malnourished. No change to recommendations, will continue to monitor. Recommendations: 1. Advance to Low-residue diet as medically indicated given recent GI surgery, current A1c, lipid panel WNL, and geriatric age 2. Ensure Clear TIDWM; pending physician verification in EMR 3. IF remains on restrictive clear liquids diet would benefit from supplemental PPN to assist meeting nutrition needs; now w/ malnutrition 4. MVI for wound healing needs 5. Bowel care per rx 6. scaled wt this admit; subsequent weekly scaled wts Addendum: 01/11/22 at [address] Amended: Links added.
[2022-01-11 10:00] VITALS: BP 121/57
--- NOTE | 2022-01-11 17:03 | NUR ---
Message: [phone] Sophy Pacheco Patient has had 500mls out of the wound vac today, slightly febrile and nauseated. thank you sandy [phone]
[2022-01-11] MEDS: ondansetron/PF 4mg/2ml inj IV PRN (17:17)
[2022-01-11 18:00] VITALS: BP 115/51
--- NOTE | 2022-01-11 18:37 | NUR ---
Problems reprioritized. Patient report given, questions answered & plan of care reviewed with leigh pierre.
[2022-01-11] MEDS: morphine 2 MG/ML inj. syringe IV PRN (21:45)
[2022-01-11 22:00] VITALS: BP 149/83
--- NOTE | 2022-01-12 00:15 | NUR ---
Pt extended IV assessed and found to be partially out and bent. IV discontinued at this time and new PIV placed with 2 attempts to right wrist 22g. Patient tolerated well. Addendum: 01/12/22 at 0017 by Mara Herring RN Amended: Links added.
[2022-01-12] MEDS: potassium Cl 20mEq in NS 1,000 ML IV SCH ×3 (01:09→16:39)
[2022-01-12] MEDS: ondansetron/PF 4mg/2ml inj IV PRN ×2 (02:53→16:06)
--- NOTE | 2022-01-12 06:20 | NUR ---
Report given to Courtney FLORES.
[2022-01-12 06:26] LABS: ALANINE AMINOTRANSFERASE 17 U/L (12-78); ALBUMIN 2.3 G/DL (3.4-5.0); ALBUMIN/GLOBULIN RATIO 0.8 (1.1-1.5); ALKALINE PHOSPHATASE 45 IU/L (46-116); ANION GAP 4 (8-16); ASPARTATE AMINO TRANSFERASE 22 U/L (10-37); BILIRUBIN,TOTAL 1.6 MG/DL (0.1-1.0); BLOOD UREA NITROGEN 9 MG/DL (7-18); BUN/CREATININE RATIO 12.5 (6.6-38.0); CALCIUM 7.3 MG/DL (8.5-10.1); CHLORIDE 107 MMOL/L (99-107); CREATININE 0.72 MG/DL (0.40-0.90); GLUCOSE 104 MG/DL (70-104); MAGNESIUM 1.6 MG/DL (1.5-2.4); POTASSIUM 3.9 MMOL/L (3.5-5.1); SODIUM 144 MMOL/L (135-145); TOTAL CARBON DIOXIDE 32.6 MMOL/L (24-32); TOTAL PROTEIN 5.2 G/DL (6.4-8.2); eGFR 78 ML/MIN
[2022-01-12 07:00] VITALS: BP 104/79
[2022-01-12] MEDS: K and/or MAG REPLACEMENT MC SCH ×2 (08:00→19:20)
[2022-01-12] MEDS: furosemide 40mg/4ml inj IV SCH (09:56)
[2022-01-12] MEDS: rifaximin 550mg tablet PO SCH ×2 (09:56→19:19)
[2022-01-12] MEDS: levoTHYROXINE 125mcg tablet PO SCH (09:56)
[2022-01-12] MEDS: pantoprazole 40mg Tablet.DR PO SCH ×2 (09:56→19:19)
[2022-01-12 14:36] VITALS: BP 123/51
[2022-01-12 18:00] VITALS: BP 126/53
--- NOTE | 2022-01-12 18:18 | NUR ---
Problems reprioritized. Patient report given, questions answered & plan of care reviewed with SANDRA Terry.
[2022-01-12] MEDS: HYDROcodone/acetaminophen 10/325mg tab PO PRN (19:19)
[2022-01-12 22:00] VITALS: BP 116/53
[2022-01-13 07:00] VITALS: BP 96/50
[2022-01-13] MEDS: levoTHYROXINE 125mcg tablet PO SCH (07:41)
[2022-01-13] MEDS: rifaximin 550mg tablet PO SCH ×2 (07:41→19:53)
[2022-01-13] MEDS: pantoprazole 40mg Tablet.DR PO SCH ×2 (07:41→19:52)
[2022-01-13] MEDS: K and/or MAG REPLACEMENT MC SCH ×2 (08:00→20:00)
--- NOTE | 2022-01-13 09:57 | NUR ---
F/u 01/13: Pt now on Full liquid diet, though mostly 0-25% now. Pt is in desperate need of nutrition support to bolster her nutrition status given prolonged insufficient diet order. RYAN has been recommending nutrition support over the course of pt stay though nutrition support has been declined by surgeon. Charlene SILVA again today recommending nutrition support. Pt continues to be very malnourished. No change to recommendations, will continue to monitor. Recommendations: 1. Advance to Low-residue diet as medically indicated given recent GI surgery, current A1c, lipid panel WNL, and geriatric age 2. Ensure Clear TIDWM; pending physician verification in EMR 3. IF remains on restrictive clear liquids diet would benefit from supplemental TPN or TF to assist meeting nutrition needs; now w/ malnutrition 4. MVI for wound healing needs 5. Bowel care per rx 6. scaled wt this admit; subsequent weekly scaled wts Addendum: 01/13/22 at [address] Amended: Links added.
[2022-01-13] MEDS: potassium Cl 20mEq in NS 1,000 ML IV SCH (10:38)
[2022-01-13 11:00] VITALS: BP 102/73
--- NOTE | 2022-01-13 13:36 | NUR ---
Message: Krystal Daniels: would you like labs ordered on this patient? its been a couple days. last ammonia level was 79. thanks, amy [id number] Transaction number: [id number]
[2022-01-13] MEDS: ipratropium/albuterol 3ml nebule NEB PRN (17:53)
[2022-01-13 18:00] VITALS: BP 111/79
--- NOTE | 2022-01-13 18:12 | NUR ---
Problems reprioritized. Patient report given, questions answered & plan of care reviewed with SANDRA Terry.
[2022-01-13] MEDS: HYDROcodone/acetaminophen 5mg/325mg tablet PO PRN (19:54)
[2022-01-13 22:00] VITALS: BP 110/64
--- NOTE | 2022-01-13 23:16 | NUR ---
Student documentation: I have reviewed interventions, assessments performed and documented by Shanice Gordon
[2022-01-14] MEDS: potassium Cl 20mEq in NS 1,000 ML IV SCH ×2 (00:46→16:04)
[2022-01-14] MEDS: ipratropium/albuterol 3ml nebule NEB PRN (03:36)
--- NOTE | 2022-01-14 06:11 | NUR ---
Report given to Courtney FLORES.
[2022-01-14 07:00] VITALS: BP 115/49
[2022-01-14 07:22] LABS: BASOPHILS % (AUTO) 0.2 % (0-1); EOSINOPHILS # (AUTO) 0.1 X10'3 (0-0.9); EOSINOPHILS % (AUTO) 1.7 % (0-6); HEMATOCRIT 30.3 % (35.0-45.0); HEMOGLOBIN 9.8 g/dl (12.0-16.0); LYMPHOCYTES # (AUTO) 0.5 X10'3 (1.1-4.8); LYMPHOCYTES % (AUTO) 9.8 % (21-51); MEAN CORPUSCULAR HEMOGLOBIN 28.1 PG (27.0-31.0); MEAN CORPUSCULAR HGB CONC 32.3 g/dL (33.0-36.5); MEAN CORPUSCULAR VOLUME 87.1 FL (78-98); MEAN PLATELET VOLUME 10.6 FL (7.4-10.4); MONOCYTES # (AUTO) 0.7 X10'3 (0-0.9); MONOCYTES % (AUTO) 12.4 % (2-12); NEUTROPHILS # (AUTO) 4.1 X10'3 (1.8-7.7); NEUTROPHILS % (AUTO) 75.9 % (42-75); PLATELET COUNT 88 X10'3 (140-440); RED BLOOD COUNT 3.48 X10'6 (4.20-5.60); RED CELL DISTRIBUTION WIDTH 19.6 % (11.5-14.5); WHITE BLOOD COUNT 5.4 X10'3 (4.5-11.0)
[2022-01-14 07:34] LABS: ALANINE AMINOTRANSFERASE 12 U/L (12-78); ALBUMIN 2.1 G/DL (3.4-5.0); ALBUMIN/GLOBULIN RATIO 0.7 (1.1-1.5); ALKALINE PHOSPHATASE 44 IU/L (46-116); ANION GAP 5 (8-16); ASPARTATE AMINO TRANSFERASE 18 U/L (10-37); BILIRUBIN,TOTAL 1.4 MG/DL (0.1-1.0); BLOOD UREA NITROGEN 11 MG/DL (7-18); BUN/CREATININE RATIO 15.7 (6.6-38.0); CALCIUM 7.5 MG/DL (8.5-10.1); CHLORIDE 107 MMOL/L (99-107); GLUCOSE 117 MG/DL (70-104); MAGNESIUM 1.7 MG/DL (1.5-2.4); PHOSPHORUS 2.7 MG/DL (2.3-4.5); POTASSIUM 3.9 MMOL/L (3.5-5.1); SODIUM 143 MMOL/L (135-145); TOTAL PROTEIN 5.1 G/DL (6.4-8.2); eGFR 80 ML/MIN
[2022-01-14] MEDS: levoTHYROXINE 125mcg tablet PO SCH (07:39)
[2022-01-14] MEDS: pantoprazole 40mg Tablet.DR PO SCH ×2 (07:39→21:38)
[2022-01-14] MEDS: rifaximin 550mg tablet PO SCH ×2 (07:39→21:38)
[2022-01-14] MEDS: K and/or MAG REPLACEMENT MC SCH ×2 (08:00→20:00)
[2022-01-14 11:00] VITALS: BP 105/56
[2022-01-14] MEDS: HYDROcodone/acetaminophen 5mg/325mg tablet PO PRN (11:21)
[2022-01-14] MEDS: nystatin 15 GM powder TP SCH ×2 (14:05→21:38)
--- NOTE | 2022-01-14 15:27 | NUR ---
PRESSURE ULCER EDUCATION: DEFINITION: A pressure ulcer is an area of skin that breaks down when you stay in one position too long. The constant pressure against the skin reduces the blood flow to that area and the affected tissue dies. CAUSES: "Being bedridden or in a wheelchair "Fragile skin "Having a chronic condition, such as diabetes or vascular disease "Inability to move certain parts of your body without assistance "Older age "Incontinence of urine or stool SYMPTOMS: "A reddened area that DOES NOT turn white when pressed on - this can be the beginning of a pressure ulcer "A blister, deep sore or a crater - these can be advanced pressure ulcers FIRST AID: "Relieve the pressure on this area "Keep the area clean and dry "Call your primary doctor if you see any of the above symptoms "DO NOT massage the area "DO NOT use a donut shaped or ring shaped pillow- these actually interfere with the blood flow and cause complications PREVENTION: "Check for pressure ulcers everyday "Change position at least every two hours to relieve pressure "Use items that help relieve pressure- pillows, sheepskin, foam padding, and powders. "Keep skin clean and dry "Eat healthy well balanced meals "Exercise daily IF YOU SEE ANY OF THESE SYMPTOMS WHILE IN THE HOSPITAL - TELL YOUR NURSE IMMEDIATELY. IF YOU SEE ANY OF THESE SYMPTOMS WHILE AT HOME OR HAVE ANY QUESTIONS OR CONCERNS ABOUT PRESSURE ULCERS - CALL YOUR PRIMARY DOCTOR IMMEDIATELY. Addendum: 01/14/22 at 1527 by Julia Ramos RN Amended: Links added.
--- NOTE | 2022-01-14 18:25 | NUR ---
Patient in room ISIAH 359. I have received report from Courtney FLORES and had the opportunity to ask questions and assume patient care.
--- NOTE | 2022-01-14 18:26 | NUR ---
Problems reprioritized. Patient report given, questions answered & plan of care reviewed with SANDRA Perera.
--- NOTE | 2022-01-14 20:48 | NUR ---
Called [facility] to adv pt has blister type rash forming on inner thighs and arms. prescribed benadryl cream q6
[2022-01-14 22:00] VITALS: BP 103/49
[2022-01-14] MEDS: diphenhydrAMINE 2%/zinc acetate cream TP SCH (22:12)
[2022-01-15] MEDS: diphenhydrAMINE 2%/zinc acetate cream TP SCH ×2 (02:00→08:04)
[2022-01-15] MEDS: potassium Cl 20mEq in NS 1,000 ML IV SCH (04:52)
[2022-01-15 06:00] VITALS: BP 112/32
--- NOTE | 2022-01-15 06:02 | NUR ---
REVIEWED HEAVY EQUIPMENT PLUMBING SUPERVISOR ASSESSMENT AND IN AGREEMNET.
--- NOTE | 2022-01-15 06:39 | NUR ---
Problems reprioritized. Patient report given, questions answered & plan of care reviewed with Jacqui FLORES.
[2022-01-15 06:52] LABS: BASOPHILS % (AUTO) 0.3 % (0-1); EOSINOPHILS # (AUTO) 0.1 X10'3 (0-0.9); EOSINOPHILS % (AUTO) 1.2 % (0-6); HEMATOCRIT 29.8 % (35.0-45.0); HEMOGLOBIN 9.7 g/dl (12.0-16.0); LYMPHOCYTES # (AUTO) 0.7 X10'3 (1.1-4.8); LYMPHOCYTES % (AUTO) 10.3 % (21-51); MEAN CORPUSCULAR HEMOGLOBIN 28.3 PG (27.0-31.0); MEAN CORPUSCULAR HGB CONC 32.6 g/dL (33.0-36.5); MEAN CORPUSCULAR VOLUME 86.8 FL (78-98); MEAN PLATELET VOLUME 10.1 FL (7.4-10.4); MONOCYTES # (AUTO) 0.7 X10'3 (0-0.9); MONOCYTES % (AUTO) 10.2 % (2-12); NEUTROPHILS # (AUTO) 5.2 X10'3 (1.8-7.7); PLATELET COUNT 96 X10'3 (140-440); RED BLOOD COUNT 3.43 X10'6 (4.20-5.60); RED CELL DISTRIBUTION WIDTH 19.6 % (11.5-14.5); WHITE BLOOD COUNT 6.6 X10'3 (4.5-11.0)
[2022-01-15 07:34] LABS: ALANINE AMINOTRANSFERASE 11 U/L (12-78); ALBUMIN 1.9 G/DL (3.4-5.0); ALBUMIN/GLOBULIN RATIO 0.6 (1.1-1.5); ALKALINE PHOSPHATASE 46 IU/L (46-116); ANION GAP 4 (8-16); ASPARTATE AMINO TRANSFERASE 20 U/L (10-37); BILIRUBIN,TOTAL 1.3 MG/DL (0.1-1.0); BLOOD UREA NITROGEN 9 MG/DL (7-18); BUN/CREATININE RATIO 13.8 (6.6-38.0); CALCIUM 7.4 MG/DL (8.5-10.1); CHLORIDE 107 MMOL/L (99-107); CREATININE 0.65 MG/DL (0.40-0.90); GLUCOSE 113 MG/DL (70-104); MAGNESIUM 1.7 MG/DL (1.5-2.4); PHOSPHORUS 2.7 MG/DL (2.3-4.5); POTASSIUM 3.9 MMOL/L (3.5-5.1); SODIUM 141 MMOL/L (135-145); TOTAL CARBON DIOXIDE 30.4 MMOL/L (24-32); TOTAL PROTEIN 4.9 G/DL (6.4-8.2); eGFR 87 ML/MIN
[2022-01-15] MEDS: levoTHYROXINE 125mcg tablet PO SCH (07:59)
[2022-01-15] MEDS: pantoprazole 40mg Tablet.DR PO SCH (07:59)
[2022-01-15] MEDS: rifaximin 550mg tablet PO SCH (07:59)
[2022-01-15] MEDS: K and/or MAG REPLACEMENT MC SCH (08:00)
[2022-01-15] MEDS: nystatin 15 GM powder TP SCH (08:00)
[2022-01-15 10:00] VITALS: BP 99/51
--- NOTE | 2022-01-15 13:15 | NUR ---
F/u 01/15: Pt has been advanced to Carb control diet today, previously on Full liquids w/ mostly 0-25% intake. This is not the ideal diet for her as she has been very malnourished through LOS and A1c 6.3. A low Fiber diet would be best for her which has been recommend by RD prior to this. Pt would benefit most from nutrition support, which RD has been recommending over the course of pt stay though nutrition support has been declined by surgeon. Pt continues to be very malnourished. No change to recommendations, will continue to monitor. Recommendations: 1. Change to Low-residue diet given recent GI surgery, current A1c, lipid panel WNL, and geriatric age 2. IF remains on restrictive clear liquids diet would benefit from supplemental TPN or TF to assist meeting nutrition needs; w/ malnutrition 3. MVI for wound healing needs 4. Bowel care per rx 5. scaled wt this admit; subsequent weekly scaled wts Addendum: 01/15/22 at [address] Amended: Links added.
--- NOTE | 2022-01-15 14:54 | NUR ---
called and gave report to RPA, pt discharged in stable condition
== END 2022-01-15 14:43 | DRG 329 ==
LOC: ER 11:49 → ED HOLD 18:06 → PCU 3S 01-02 16:51 → CICU 2S 01-07 17:00 → SUR 3N 01-10 17:18
PROVIDERS: ADMIT Family Medicine; ATTEND Family Medicine
PROC: BW211ZZ Computerized Tomography (CT Scan) of Abdomen and Pelvis using Low Osmolar Contrast (ICD-10-PCS; 2022-01-02)
PROC: 0DB68ZX Excision of Stomach, Via Natural or Artificial Opening Endoscopic, Diagnostic (ICD-10-PCS; 2022-01-05)
PROC: 0DB98ZX Excision of Duodenum, Via Natural or Artificial Opening Endoscopic, Diagnostic (ICD-10-PCS; 2022-01-05)
PROC: 0DBL8ZX Excision of Transverse Colon, Via Natural or Artificial Opening Endoscopic, Diagnostic (ICD-10-PCS; 2022-01-05)
PROC: 30233N1 Transfusion of Nonautologous Red Blood Cells into Peripheral Vein, Percutaneous Approach (ICD-10-PCS; 2022-01-06)
PROC: 0DJD4ZZ Inspection of Lower Intestinal Tract, Percutaneous Endoscopic Approach (ICD-10-PCS; principal; 2022-01-08)
PROC: 0DBK0ZZ Excision of Ascending Colon, Open Approach (ICD-10-PCS; 2022-01-08)
DX: D37.4 Neoplasm of uncertain behavior of colon (principal); G93.41 Metabolic encephalopathy; E87.0 Hyperosmolality and hypernatremia; K92.2 Gastrointestinal hemorrhage, unspecified; N39.0 Urinary tract infection, site not specified; R18.8 Other ascites; T81.31XA Disruption of external operation (surgical) wound, not elsewhere classified, initial encounter; D50.9 Iron deficiency anemia, unspecified; E86.0 Dehydration; Z20.822 Contact with and (suspected) exposure to COVID-19; D69.6 Thrombocytopenia, unspecified; E03.9 Hypothyroidism, unspecified; E11.9 Type 2 diabetes mellitus without complications; I50.9 Heart failure, unspecified; J44.9 Chronic obstructive pulmonary disease, unspecified; K76.82 Hepatic encephalopathy; Y83.8 Other surgical procedures as the cause of abnormal reaction of the patient, or of later complication, without mention of misadventure at the time of the procedure; B96.20 Unspecified Escherichia coli [E. coli] as the cause of diseases classified elsewhere; K52.9 Noninfective gastroenteritis and colitis, unspecified; K21.9 Gastro-esophageal reflux disease without esophagitis; K74.60 Unspecified cirrhosis of liver; R93.89 Abnormal findings on diagnostic imaging of other specified body structures; Z53.31 Laparoscopic surgical procedure converted to open procedure; Z63.4 Disappearance and death of family member; Z80.3 Family history of malignant neoplasm of breast; Z87.891 Personal history of nicotine dependence; Z82.3 Family history of stroke; Z83.49 Family history of other endocrine, nutritional and metabolic diseases; Z91.199 Patient's noncompliance with other medical treatment and regimen due to unspecified reason; Y92.238 Other place in hospital as the place of occurrence of the external cause
CPT/HCPCS: 36415; 36430; 43239; 45380; 70450; 71045; 71260; 74177; 76856; 80047; 80053; 80061; 81001; 82140; 82272; 82728; 82948; 83036; 83540; 83550; 83735; 84100; 84132; 84145; 84439; 84443; 85008; 85025; 85027; 85610; 85730; 86592; 86703; 86705; 86706; 86709; 86803; 86885; 86900; 86901; 86920; 87077; 87081; 87088; 87186; 87340; 87635; 87811; 88305; 88309; 93005; 93306; 94640; 94664; 94668; 94760; 97110; 97116; 97161; 97164; 97530; 99152; 99153; 99285; A4333; A4357; A4615; A4618; A4620; A4624; A4649; A5200; A6154; A6213; A6253; A6258; A6266; A6407; A6446; A6449; A6550; A7000; C1758; C9113; G0378; J0694; J0696; J1100; J1200; J1644; J1940; J2175; J2250; J2270; J2405; J2704; J2710; J2916; J3010; J3475; J3480; J3490; J7030; J7040; J7070; J7120; J7121; P9016; P9045; P9047; Q9963; Q9967

== ENCOUNTER 2022-02-07 10:20 | Emergency (ER) | payer BC ==
[~2022-02-07] VITALS: Ht 152.4 cm; Wt 78.0 kg
[~2022-02-07 10:20] MED LIST changes: -IBUP-1985 PO; +LEVO125T8 PO
[2022-02-07 10:49] VITALS: BP 108/67
[2022-02-07 12:53] LABS: BASOPHILS % (AUTO) 0.6 % (0-1); EOSINOPHILS # (AUTO) 0.1 X10'3 (0-0.9); EOSINOPHILS % (AUTO) 1.7 % (0-6); HEMATOCRIT 35.6 % (35.0-45.0); HEMOGLOBIN 11.4 g/dl (12.0-16.0); LYMPHOCYTES # (AUTO) 0.7 X10'3 (1.1-4.8); LYMPHOCYTES % (AUTO) 12.7 % (21-51); MEAN CORPUSCULAR HEMOGLOBIN 28.5 PG (27.0-31.0); MEAN CORPUSCULAR VOLUME 89.3 FL (78-98); MEAN PLATELET VOLUME 8.9 FL (7.4-10.4); MONOCYTES # (AUTO) 0.6 X10'3 (0-0.9); NEUTROPHILS # (AUTO) 3.8 X10'3 (1.8-7.7); PLATELET COUNT 159 X10'3 (140-440); RED BLOOD COUNT 3.99 X10'6 (4.20-5.60); RED CELL DISTRIBUTION WIDTH 21.8 % (11.5-14.5); WHITE BLOOD COUNT 5.1 X10'3 (4.5-11.0)
== END 2022-02-07 15:54 | disposition home or self-care (01) ==
LOC: ER 10:21
DX: N93.9 Abnormal uterine and vaginal bleeding, unspecified (principal); I50.9 Heart failure, unspecified; J44.9 Chronic obstructive pulmonary disease, unspecified; K21.9 Gastro-esophageal reflux disease without esophagitis
CPT/HCPCS: 36415; 85025; 99284

== ENCOUNTER 2022-02-28 21:32 | Emergency (ER) | payer BC ==
[~2022-02-28] VITALS: Ht 152.4 cm; Wt 75.9 kg
[2022-02-28 22:35] LABS: BASOPHILS % (AUTO) 0.3 % (0-1); EOSINOPHILS # (AUTO) 0.2 X10'3 (0-0.9); EOSINOPHILS % (AUTO) 3.4 % (0-6); HEMATOCRIT 37.6 % (35.0-45.0); HEMOGLOBIN 12.4 g/dl (12.0-16.0); LYMPHOCYTES # (AUTO) 0.9 X10'3 (1.1-4.8); LYMPHOCYTES % (AUTO) 14.9 % (21-51); MEAN CORPUSCULAR HEMOGLOBIN 29.7 PG (27.0-31.0); MEAN CORPUSCULAR HGB CONC 32.8 g/dL (33.0-36.5); MEAN CORPUSCULAR VOLUME 90.4 FL (78-98); MEAN PLATELET VOLUME 9.4 FL (7.4-10.4); MONOCYTES # (AUTO) 0.6 X10'3 (0-0.9); MONOCYTES % (AUTO) 9.8 % (2-12); NEUTROPHILS # (AUTO) 4.5 X10'3 (1.8-7.7); NEUTROPHILS % (AUTO) 71.6 % (42-75); PLATELET COUNT 140 X10'3 (140-440); RED BLOOD COUNT 4.16 X10'6 (4.20-5.60); RED CELL DISTRIBUTION WIDTH 21.7 % (11.5-14.5); WHITE BLOOD COUNT 6.2 X10'3 (4.5-11.0)
[2022-02-28 22:47] LABS: ALANINE AMINOTRANSFERASE 15 U/L (12-78); ALBUMIN 1.6 G/DL (3.4-5.0); ALBUMIN/GLOBULIN RATIO 0.3 (1.1-1.5); ALKALINE PHOSPHATASE 81 IU/L (46-116); ANION GAP 11 (8-16); ASPARTATE AMINO TRANSFERASE 34 U/L (10-37); BILIRUBIN,TOTAL 1.1 MG/DL (0.1-1.0); BLOOD UREA NITROGEN 11 MG/DL (7-18); BUN/CREATININE RATIO 12.5 (6.6-38.0); CALCIUM 7.5 MG/DL (8.5-10.1); CHLORIDE 101 MMOL/L (99-107); CREATININE 0.88 MG/DL (0.40-0.90); GLUCOSE 156 MG/DL (70-104); POTASSIUM 3.3 MMOL/L (3.5-5.1); SODIUM 134 MMOL/L (135-145); TOTAL CARBON DIOXIDE 22.4 MMOL/L (24-32); TOTAL PROTEIN 7.1 G/DL (6.4-8.2); eGFR 62 ML/MIN
[2022-02-28 23:26] LABS: ANISOCYTOSIS 3+; PLATELET ESTIMATE NORMAL
[2022-02-28 23:27] LABS: LARGE PLATELETS FEW
--- NOTE | 2022-03-01 01:30 | NUR ---
NOTIFIED PT THAT WE NEED A UA. PT STATES, "I WILL TRAY LATER." WILL ASK AGAIN LATER.
[2022-03-01] MEDS ORDERED: iohexol 300mg/ml 100ml inj. ONE (02:51)
--- NOTE | 2022-03-01 03:57 | NUR ---
attempted to obtain a ua, attempt was unsuccessful. will attempt again.
[2022-03-01 05:12] VITALS: BP 114/54
== END 2022-03-01 05:40 | disposition home or self-care (01) ==
LOC: ER 21:34
DX: R10.84 Generalized abdominal pain (principal); R14.0 Abdominal distension (gaseous); J44.9 Chronic obstructive pulmonary disease, unspecified; K21.9 Gastro-esophageal reflux disease without esophagitis; I50.9 Heart failure, unspecified; Z86.2 Personal history of diseases of the blood and blood-forming organs and certain disorders involving the immune mechanism; Z87.440 Personal history of urinary (tract) infections; Z79.899 Other long term (current) drug therapy
CPT/HCPCS: 36415; 71045; 74177; 80053; 83605; 84145; 85008; 85025; 87040; 99285; J3490; Q9967

== ENCOUNTER 2022-04-15 21:31 | Emergency (ER) | payer BC, MEDICARE ==
[~2022-04-15] VITALS: Ht 152.4 cm; Wt 65.8 kg
[2022-04-15 22:09] LABS: BASOPHILS # (AUTO) 0.1 X10'3 (0-0.2); BASOPHILS % (AUTO) 0.7 % (0-1); EOSINOPHILS # (AUTO) 0.1 X10'3 (0-0.9); EOSINOPHILS % (AUTO) 0.7 % (0-6); HEMATOCRIT 42.8 % (35.0-45.0); HEMOGLOBIN 13.9 g/dl (12.0-16.0); LYMPHOCYTES # (AUTO) 1.4 X10'3 (1.1-4.8); LYMPHOCYTES % (AUTO) 13.1 % (21-51); MEAN CORPUSCULAR HEMOGLOBIN 30.6 PG (27.0-31.0); MEAN CORPUSCULAR HGB CONC 32.4 g/dL (33.0-36.5); MEAN CORPUSCULAR VOLUME 94.2 FL (78-98); MEAN PLATELET VOLUME 9.3 FL (7.4-10.4); MONOCYTES % (AUTO) 8.9 % (2-12); NEUTROPHILS # (AUTO) 8.3 X10'3 (1.8-7.7); NEUTROPHILS % (AUTO) 76.6 % (42-75); PLATELET COUNT 309 X10'3 (140-440); RED BLOOD COUNT 4.54 X10'6 (4.20-5.60); RED CELL DISTRIBUTION WIDTH 16.2 % (11.5-14.5); WHITE BLOOD COUNT 10.8 X10'3 (4.5-11.0)
[2022-04-15 22:25] LABS: ALANINE AMINOTRANSFERASE 10 U/L (12-78); ALBUMIN 2.2 G/DL (3.4-5.0); ALBUMIN/GLOBULIN RATIO 0.3 (1.1-1.5); ALKALINE PHOSPHATASE 90 IU/L (46-116); ANION GAP 8 (8-16); ASPARTATE AMINO TRANSFERASE 32 U/L (10-37); BILIRUBIN,TOTAL 1.2 MG/DL (0.1-1.0); BLOOD UREA NITROGEN 17 MG/DL (7-18); BUN/CREATININE RATIO 12.3 (6.6-38.0); CALCIUM 9.3 MG/DL (8.5-10.1); CHLORIDE 102 MMOL/L (99-107); CREATININE 1.38 MG/DL (0.40-0.90); GLUCOSE 170 MG/DL (70-104); LIPASE 83 U/L (73-393); POTASSIUM 4.7 MMOL/L (3.5-5.1); SODIUM 135 MMOL/L (135-145); TOTAL CARBON DIOXIDE 25.1 MMOL/L (24-32); eGFR 37 ML/MIN
[2022-04-16 04:20] LABS: CLARITY,URINE CLOUDY (Clear); COLOR,URINE YELLOW (Yellow); GLUCOSE, URINE NEGATIVE (Neg); KETONES,URINE 15 mg/dl (Neg); LEUKOCYTE ESTERASE ,URINE NEGATIVE (Neg); NITRITES, URINE NEGATIVE (Neg); OCCULT BLOOD,URINE SMALL (Neg); PROTEIN,URINE TRACE mg/dl (Neg)
[2022-04-16 04:24] LABS: UA COLLECTION TYPE CLN CATCH MIDSTREAM
[2022-04-16 04:27] LABS: BACTERIA,URINE 3+ /HPF (Neg); HYALINE CASTS >30 /LPF (NEGATIVE); SQUAMOUS EPITHELIAL CELL,UR MANY /LPF (FEW)
[2022-04-16 04:28] LABS: TRANSITIONAL EPI CELLS,URINE FEW /HPF; WBC,URINE 0-4 /HPF (0-4)
[2022-04-16] MEDS ORDERED: amox tr/potassium clavulanate 875/125mg TAB PO ONE (04:55)
[2022-04-16] MEDS ORDERED: AMOX-117 PO (05:01)
[2022-04-16 05:30] VITALS: BP 108/60
[2022-04-16 07:40] LABS: OCCULT BLOOD STOOL NEGATIVE (Neg)
== END 2022-04-16 05:25 | disposition home or self-care (01) ==
LOC: ER 21:31
DX: K92.2 Gastrointestinal hemorrhage, unspecified (principal); R10.84 Generalized abdominal pain; R11.2 Nausea with vomiting, unspecified; J44.9 Chronic obstructive pulmonary disease, unspecified; K21.9 Gastro-esophageal reflux disease without esophagitis; I50.9 Heart failure, unspecified; Z98.890 Other specified postprocedural states; Z79.899 Other long term (current) drug therapy
CPT/HCPCS: 36415; 74176; 80053; 81001; 82272; 83690; 85025; 99285